=== PATIENT | female | born 1975 | race Two or more races ===

== ENCOUNTER 2019-07-12 20:07 | Emergency (ER) | payer BC ==
[~2019-07-12] VITALS: Ht 149.9 cm; Wt 61.2 kg
[2019-07-13 00:39] LABS: Urine Bacteria FEW /hpf (None Seen); Urine Blood Negative /uL (Negative); Urine Mucus FEW (None Seen); Urine Specific Gravity 1.002 (1.001-1.035); Urine WBC 2 /hpf (0 - 5)
[2019-07-13 00:44] LABS: Basophils # (auto) 0 uL; Basophils % (auto) 0.3 % (0.0-2.0); Eosinophils # (auto) 0 uL; Eosinophils % (auto) 0.1 % (0.0-7.0); Hematocrit 42.4 % (36.0-46.0); Hemoglobin 14.5 g/dL (12.2-16.2); Lymphocytes # (auto) 1.4 uL; Lymphocytes % (auto) 10.1 % (10.0-50.0); Mean Corpuscular Hemoglobin 31.9 pg (28.0-32.0); Mean Corpuscular Hgb Conc. 34.3 g/dL (32.0-36.0); Mean Corpuscular Volume 92.9 fL (80.0-100.0); Monocytes # (auto) 0.5 uL; Monocytes % (auto) 3.7 % (0.0-12.0); Neutrophils # (auto) 11.5 uL; Neutrophils % (auto) 85.8 % (37.0-80.0); Platelet Count (auto) 338 10^3/uL (140-450); Red Blood Cells 4.56 10^6/uL (4.0-5.20); Red Cell Distribution Width 13.2 % (11.8-14.3); White Blood Cell 13.4 10^3/uL (4.4-10.8)
[2019-07-13 01:00] LABS: Albumin 3.9 g/dL (3.4-5.0); Calcium 8.6 mg/dL (8.5-10.1); Magnesium 2.2 mg/dL (1.6-2.6); Potassium 3.8 mmol/L (3.5-5.1)
[2019-07-13 01:02] LABS: BUN/Creatinine Ratio 10.6
[2019-07-13 01:23] LABS: Bilirubin, Total 0.4 mg/dL (0.2-1.0); Total Protein 7.1 g/dL (6.4-8.2)
[2019-07-13] MEDS ORDERED: ONDANSETRON HCL 4 MG/2 ML VIAL IV ONE (04:15)
[2019-07-13] MEDS ORDERED: SODIUM CHLORIDE 0.9% 1,000 ML IV ONE (04:15)
[2019-07-13] MEDS ORDERED: cefTRIAXone 1GM/50ML D5W 50 ML IV ONE (04:15)
[2019-07-13] MEDS ORDERED: metroNIDAZOLE 500MG/100ML 100 ML IV ONE (04:15)
[2019-07-13] MEDS ORDERED: MORPHINE SULFATE 4 MG/ML SYR/VIAL IV ONE (04:15)
[2019-07-13 08:25] VITALS: BP 101/60
== END 2019-07-13 08:26 | disposition home or self-care (01) ==
LOC: EDBD 20:07 → ER 20:15
DX: K52.9 Noninfective gastroenteritis and colitis, unspecified (principal); Z90.89 Acquired absence of other organs
CPT/HCPCS: 36415; 74176; 80053; 81001; 83690; 83735; 85025; 96361; 96365; 96367; 96375; 99284; J0696; J2270; J2405; J3490; J7030